=== PATIENT | male | born 2000 | race Two or more races ===

== ENCOUNTER 2019-09-01 13:26 | Emergency (ER) | payer SELFPAY ==
--- NOTE | 2019-09-01 13:55 | EDM.PDOC ---
ED HPI GENERAL MEDICAL PROBLEM - General Chief Complaint: Laceration Stated Complaint: SEIZURE Time Seen by Provider: 09/01/19 13:35 Source of Information: Reports: Patient, EMS, Family, Location Director History Limitations: Reports: Language Barrier - History of Present Illness INITIAL COMMENTS - FREE TEXT/NARRATIVE: Patient arrives by ambulance from home after having a generalized tonic-clonic seizure witnessed by family. He has been healthy recently and denies any changes in routines, sleep, drug, alcohol use. He does not have any warning before the seizures come. He collapsed to the floor and sustained a laceration of the left chin region. He was conscious but post ictal on arrival of paramedics. He is currently treated with lamotrigine and zonisamide, prescribed by a neurologist in [place] prior to moving to [place]. His dose of zonisamide was increased almost 2 months ago. Other than pain in the region of his chin, he denies any other uncomfortable areas at this time. Onset: Today, Sudden Location: Reports: Generalized Severity: Moderate Improves with: Reports: None Worsens with: Reports: None - Related Data Allergies Allergy/AdvReac Type Severity Reaction Status Date / Time No Known Allergies Allergy Verified 09/01/19 13:30 Home Meds: Home Meds Zonisamide [Zonegran] 300 mg PO BID 09/01/19 [History] lamoTRIgine 200 mg PO BID 09/01/19 [History] lamoTRIgine [Lamotrigine] 50 mg PO BID 09/01/19 [History] Past Medical History Musculoskeletal History: Reports: Fracture Neurological History: Reports: Seizure - Past Surgical History Other Neurological Surgeries/Procedures: chin surgery Other Musculoskeletal Surgeries/Procedures:: surgery on chin Social & Family History - Tobacco Use Smoking Status *Q: Never Smoker - Caffeine Use Caffeine Use: Reports: Soda - Recreational Drug Use Recreational Drug Use: No ED ROS GENERAL - Review of Systems Review Of Systems: See Below Constitutional: Reports: No Symptoms HEENT: Reports: No Symptoms Respiratory: Reports: No Symptoms Cardiovascular: Reports: No Symptoms Neurological: Reports: Confusion, Seizure Psychiatric: Reports: No Symptoms ED EXAM, SKIN/RASH Exam: See Below Exam Limited By: Language Barrier General Appearance: Alert Ears: Normal External Exam Nose: Normal Inspection Throat/Mouth: Normal Inspection Head: Other (There is a 2 cm linear laceration just to the left of the mentum on the inferior surface of the mandible.) Neck: Normal Inspection Respiratory/Chest: No Respiratory Distress Cardiovascular: Normal Peripheral Pulses ED SKIN PROCEDURES - Laceration/Wound Repair Left Lower Mid-Anterior Jaw Appearance: Superficial, Clean Distal NVT: Neuro & Vascular Intact Anesthetic Type: Local Local Anesthesia - Lidocaine (Xylocaine): 1% with EPI Local Anesthetic Volume: 2cc Skin Prep: Saline Saline Irrigation (cc's): 50 Exploration/Debridement/Repair: Wound Explored, No Foreign Material Found Closed with: Sutures Lac/Wound length In cm: 2.5 Suture Size: 4-0 # of Sutures: 6 Suture Type: Prolene Course - Vital Signs Last Recorded V/S: Last Vital Signs Temp 36.0 C 09/01/19 13:28 Pulse 94 09/01/19 13:28 Resp 20 09/01/19 13:28 BP 126/69 09/01/19 13:28 Pulse Ox 100 09/01/19 13:28 - Orders/Labs/Meds Orders: Active Orders 24 hr Category Date Time Status CBC WITH AUTO DIFF [HEME] Stat Lab 09/01/19 13:47 Ordered COMPREHENSIVE METABOLIC PN,CMP [CHEM] Stat Lab 09/01/19 13:47 Ordered DRUG SCREEN, URINE [URCHEM] Stat Lab 09/01/19 13:47 - Re-Assessments/Exams Free Text/Narrative Re-Assessment/Exam: 09/01/19 13:56 The patient will need sutures to approximate the laceration on his chin. We'll await results of other laboratory testing for additional determinations. 09/01/19 15:43 The laceration under his chin was repaired with Prolene interrupted sutures. See procedure note for details. He still complains of pain along the right mandibular angle both at rest and with movement of the jaw. There is a lesser amount in the left mandibular angle. CT scan of maxillofacial bones was obtained. I do not see any fractures to my analysis. 1341 hours, return to review my tentative impression of his scan and recheck with the patient. He is comfortable at this time. Departure - Departure Time of Disposition: 15:57 Disposition: Home, Self-Care 01 Clinical Impression: Seizure, Laceration of face - Discharge Information *PRESCRIPTION DRUG MONITORING PROGRAM REVIEWED*: Not Applicable *COPY OF PRESCRIPTION DRUG MONITORING REPORT IN PATIENT BRODIE: Not Applicable Instructions: Seizure, Adult, Sutured Wound Care Referrals: PCP,None [Primary Care Provider] - Additional Instructions: The sutures, 6 of them, can be removed in 6 days. There may be some clear johnny liquid that comes from the laceration but that would be normal. Watch for signs of redness, increased swelling or pus discharge. Return to this department if you notice any of those. Tylenol is good to use for any pain. Often people have muscle and bone pain after a seizure. The shirt to get adequate sleep as not sleeping as much can increase the chances of a seizure. Avoid any excessive stimulation from caffeine or other stimulant substances. Call your neurologist in [place] and ask them if they recommend changing the doses of any of your medications. If you feel worse in any way return to this emergency department. - My Orders Last 24 Hours: My Active Orders 09/01/19 13:47 CBC WITH AUTO DIFF [HEME] Stat COMPREHENSIVE METABOLIC PN,CMP [CHEM] Stat DRUG SCREEN, URINE [URCHEM] Stat - Assessment/Plan Last 24 Hours: My Active Orders 09/01/19 13:47 CBC WITH AUTO DIFF [HEME] Stat COMPREHENSIVE METABOLIC PN,CMP [CHEM] Stat DRUG SCREEN, URINE [URCHEM] Stat
[2019-09-01] MEDS: Lidocaine 1% with EPINEPHrine 1:100,000 50 ML MDV INFILT STA (14:12)
--- NOTE | 2019-09-01 15:22 | CRLCT ---
INDICATION: Right mandibular trauma during seizure TECHNIQUE: CT maxillofacial without contrast. COMPARISON: None FINDINGS: Facial bones and mandible: No acute fracture. Plate and screw hardware along the right mandibular angle and the parasymphyseal region of the left mandible. No hardware complication identified. Orbits and globes: Unremarkable. Sinuses: No acute or significant findings. Soft tissues: Unremarkable. IMPRESSION: No sign of acute injury or hardware complication. Please note that all CT scans at this facility use dose modulation, iterative reconstruction, and/or weight-based dosing when appropriate to reduce radiation dose to as low as reasonably achievable. Dictated by Catrina Bui MD @ Sep 01 2019 3:12PM Signed by Dr. Catrina Bui @ Sep 01 2019 3:19PM
== END 2019-09-01 16:11 | disposition home or self-care (01) ==
LOC: JP.ED 13:26
DX: S01.81XA Laceration without foreign body of other part of head, initial encounter (principal); G40.909 Epilepsy, unspecified, not intractable, without status epilepticus; W19.XXXA Unspecified fall, initial encounter; Y92.009 Unspecified place in unspecified non-institutional (private) residence as the place of occurrence of the external cause
CPT/HCPCS: 12011; 36415; 70486; 80053; 80305-QW; 85025; 99283; 99284-25

== ENCOUNTER 2020-06-23 08:46 | Emergency (ER) | payer MEDICAID ==
--- NOTE | 2020-06-23 08:58 | EDM.PDOC ---
ED HPI GENERAL MEDICAL PROBLEM - General Chief Complaint: Neuro Symptoms/Deficits Stated Complaint: MEDICAL VIA NORT Time Seen by Provider: 06/23/20 08:54 Source of Information: Reports: Patient, EMS, Old Records History Limitations: Reports: No Limitations - History of Present Illness INITIAL COMMENTS - FREE TEXT/NARRATIVE: 20 yo male with a known seizure hx is brought in by EMS after he had an approx 30 sec seizure that resolved without tx. He was noted to be post-ictal for a period after the seizure, but is now alert. 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 No missed meds recently. Has a neurologist who manages his seizures. No injury from this seizure. Slept well last night. Last seizure about 6 mos ago. Managed by neurology out [facility]. 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) (none) denies Pain Score (Numeric/FACES): 0 - Related Data Allergies Allergy/AdvReac Type Severity Reaction Status Date / Time No Known Allergies Allergy Verified 06/23/20 08:52 Home Meds: Home Meds Zonisamide [Zonegran] 300 mg PO BID 09/01/19 [History] lamoTRIgine 200 mg PO BID 09/01/19 [History] lamoTRIgine [Lamotrigine] 50 mg PO BID 09/01/19 [History] Past Medical History Musculoskeletal History: Reports: Fracture Neurological History: Reports: Seizure - Past Surgical History Other Neurological Surgeries/Procedures: chin surgery Other Musculoskeletal Surgeries/Procedures:: surgery on chin Social & Family History - Caffeine Use Caffeine Use: Reports: Soda ED ROS GENERAL - Review of Systems Review Of Systems: See Below Constitutional: Reports: No Symptoms HEENT: Reports: No Symptoms Respiratory: Reports: No Symptoms Cardiovascular: Reports: No Symptoms Endocrine: Reports: No Symptoms GI/Abdominal: Reports: No Symptoms : Denies: Incontinence Skin: Reports: No Symptoms Neurological: Reports: Seizure - Physical Exam Exam: See Below Exam Limited By: No Limitations General Appearance: Alert, WD/WN, No Apparent Distress Eye Exam: Bilateral Eye: Normal Inspection Ears: Normal External Exam, Normal Canal, Hearing Grossly Normal, Normal TMs Nose: Normal Inspection, No Blood Throat/Mouth: Normal Inspection, Normal Lips, Normal Oropharynx, Normal Voice, No Airway Compromise. No: Evidence of Tongue Biting Head Exam: Atraumatic, Normocephalic Neck: Normal Inspection Respiratory/Chest: No Respiratory Distress, Lungs Clear, Normal Breath Sounds, No Accessory Muscle Use Cardiovascular: Regular Rate, Rhythm, No Edema GI/Abdominal: Normal Bowel Sounds, Soft, Non-Tender, No Distention Back Exam: Normal Inspection Extremities: Normal Inspection, Normal Range of Motion, Non-Tender, No Pedal Edema Psychiatric: Normal Affect, Normal Mood Skin Exam: Warm, Dry, Intact, Normal Color, No Rash Course - Vital Signs Text/Narrative:: Was given breakfast as he had not yet eaten. Last Recorded V/S: Last Vital Signs Temp 35.6 C L 06/23/20 08:50 Pulse 95 06/23/20 08:50 Resp 16 06/23/20 08:50 BP 112/74 06/23/20 08:50 Pulse Ox 98 06/23/20 08:50 - Re-Assessments/Exams Free Text/Narrative Re-Assessment/Exam: 06/23/20 09:14 Patient requested an seismic interpreter, will make the arrangements and then resume my history and physical. Departure - Departure Time of Disposition: 09:55 Disposition: Home, Self-Care 01 Condition: Good Clinical Impression: Seizure - Discharge Information *PRESCRIPTION DRUG MONITORING PROGRAM REVIEWED*: Not Applicable *COPY OF PRESCRIPTION DRUG MONITORING REPORT IN PATIENT BRODIE: Not Applicable Referrals: PCP,None [Primary Care Provider] - Forms: ED Department Discharge Additional Instructions: Continue your current medications. Talk with your neurologist on Thursday to see if he wants to make any changes in your medications. Return as needed. Sepsis Event Note (ED) - Evaluation Sepsis Screening Result: No Definite Risk - Focused Exam Vital Signs: Vital Signs Temp Pulse Resp BP Pulse Ox 06/23/20 08:50 35.6 C L 95 16 112/74 98
== END 2020-06-23 10:15 | disposition home or self-care (01) ==
LOC: JP.ED 08:46
DX: R56.9 Unspecified convulsions (principal); Z79.899 Other long term (current) drug therapy
CPT/HCPCS: 99284